=== PATIENT | female | born 1965 | race Caucasian/White ===

== ENCOUNTER 2023-04-27 03:10 | Emergency (ER) | payer OTHER, SELFPAY ==
[2023-04-27 03:12] VITALS: BP 135/93; PULSE 79; RESP 24; TEMP 36.6; O2SAT 97; BMI 17.3
[2023-04-27 03:22] VITALS: O2SAT 95
--- NOTE | 2023-04-27 03:25 | ECG_ITS ---
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
--- NOTE | 2023-04-27 03:31 | ED.ANXIETY1 ---
HPI - Anxiety General Chief Complaint: Anxiety Stated Complaint: ANXIETY Time Seen by Provider: 04/27/23 03:20 Source: patient Mode of arrival: ambulance Limitations: no limitations History of Present Illness HPI narrative: 57-year-old female presents for anxiety. It began tonight. She called 911 and the squad came out but initially she was transported because she didn't want to be. Later in the evening she called a 2nd time and they brought her in now. She is not suicidal. She's on anxiety medication. No fever or vomiting. Related Data Home Medications Medication Instructions Recorded Confirmed albuterol sulfate 2.5 mg/3 mL 2.5 mg inhalation PRN shortness of 04/27/23 (0.083 %) solution for nebulization breath or wheezing albuterol sulfate 90 mcg/actuation 2 puff inhalation Q4H 04/27/23 04/27/23 aerosol inhaler (Ventolin HFA) budesonide-formoterol HFA 80 1 inh inhalation PRN shortness of 04/27/23 mcg-4.5 mcg/actuation aerosol breath inhaler (Symbicort) mirtazapine 15 mg tablet 15 mg PO DAILY 04/27/23 04/27/23 sertraline 25 mg tablet 25 mg PO Q24H 04/27/23 04/27/23 Allergies Allergy/AdvReac Type Severity Reaction Status Date / Time No Known Drug Allergies Allergy Verified 04/27/23 03:20 Review of Systems ROS Narrative A ten point review of systems is negative except as noted above. PFSH PFSH Social History Smoking status: Former smoker Exam Narrative Exam Narrative: Nurses note and vital signs reviewed and patient is not hypoxic. General: The patient appears mildly anxious. Skin: Warm, dry, no pallor noted. There is no rash noted. Head: Normocephalic, atraumatic Eye: Normal conjunctiva, no drainage Ears, Nose, Mouth, and Throat: oral mucosa is moist. Nares patent. Cardiovascular: Regular Rate and Rhythm Respiratory: Patient has equal breath sounds. No rales or rhonchi noted. Back: non-tender GI: nontender Musculoskeletal: The patient has no evidence of calf tenderness, no pitting edema, symmetrical pulses noted bilaterally Neurological: A&O, normal speech Psychiatric: Cooperative Constitutional Vital Signs, click to edit/add: Last Vital Signs Temp 97.8 F 04/27/23 03:12 Pulse 79 04/27/23 03:12 Resp 24 04/27/23 03:12 BP 135/93 H 04/27/23 03:12 Pulse Ox 95 04/27/23 03:22 O2 Del Method Nasal Cannula 04/27/23 03:22 O2 Flow Rate 2 04/27/23 03:22 Course Vital Signs Vital signs: Vital Signs Temperature 97.8 F 04/27/23 03:12 Pulse Rate 79 04/27/23 03:12 Respiratory Rate 24 04/27/23 03:12 Blood Pressure 135/93 H 04/27/23 03:12 Pulse Oximetry 97 04/27/23 03:12 Oxygen Delivery Method Nasal Cannula 04/27/23 03:12 Oxygen Delivery Flow Rate 2 04/27/23 03:12 Temperature 97.8 F 04/27/23 03:12 Pulse Rate 79 04/27/23 03:12 Respiratory Rate 24 04/27/23 03:12 Blood Pressure 135/93 H 04/27/23 03:12 Pulse Oximetry 95 04/27/23 03:22 Oxygen Delivery Method Nasal Cannula 04/27/23 03:22 Oxygen Delivery Flow Rate 2 04/27/23 03:22 MDM - Anxiety MDM Narrative Medical decision making narrative: the patient presented with anxiety. She was given 0.5 mg IV Ativan and feels much better. She's been resting and sleeping and is able to be discharged home. Treatment diagnosis and follow-up were discussed with the patient. Differential Diagnosis Differential diagnosis: Likely panic disorder and acute anxiety ECG Data Attestation: I personally reviewed and interpreted this ECG as follows: (EKG on my interpretation shows sinus rhythm with a rate of 83 and a great deal of artifact.) Discharge Plan Discharge Chief Complaint: Anxiety Clinical Impression: Acute anxiety Patient Disposition: Home, Self-Care Time of Disposition Decision: 04:26 Condition: Good Mode of Transportation: Private Vehicle Prescriptions / Home Meds: No Action albuterol sulfate 2.5 mg /3 mL (0.083 %) solution for nebulization 2.5 mg inhalation PRN (Reason: shortness of breath or wheezing) albuterol sulfate [Ventolin HFA] 90 mcg/actuation HFA aerosol inhaler 2 puff INHALATION Q4H budesonide-formoterol [Symbicort] 80-4.5 mcg/actuation HFA aerosol inhaler 1 inh INHALATION PRN (Reason: shortness of breath) mirtazapine 15 mg tablet 15 mg PO DAILY sertraline 25 mg tablet 25 mg PO Q24H Instructions: Anxiety (ED) Stand Alone Forms: Portal Instructions Referrals: AUGUSTUS PRADHAN APRN [Physician] - 1 week
[2023-04-27] MEDS: LORAZEPAM 2 MG/ML 1 ML VIAL 0.5 MG IV (03:36)
--- NOTE | 2023-04-27 03:56 | PC.NURSE ---
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 she originally called 911 around 2100 but ultimately decided not be come to the hospital to be evaluated. states after EMS left the first time anxiety did not resolve. 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 denies thoughts of self harm. upon arrival patient is sitting up on stretcher, tense, holding onto ems personal . patient on 2 liter of o2 she has been since she was diagnosed with Long Covid 2 years ago. patient is tachypneic breathing 30 breaths per min. patient is currently being treated for anxiety and ptsd
== END 2023-04-27 05:20 | disposition home or self-care (01) ==
PROVIDERS: Emergency Provider Emergency Medicine
DX: F41.9 Anxiety disorder, unspecified (principal); Z79.899 Other long term (current) drug therapy; Z87.891 Personal history of nicotine dependence
CPT/HCPCS: 93005; 96374; 99284

== ENCOUNTER 2024-06-17 12:36 | Inpatient (IN) | payer OTHER, SELFPAY ==
[2024-06-17] VITALS (18 sets, daily range): BP systolic 104–122; BP diastolic 63–87; PULSE 74–94; TEMP 36.3–36.7; O2SAT 87–97; BMI 18.4; BMI 17.5
--- NOTE | 2024-06-17 13:04 | XR_ITS ---
The [address] [address] Patient Name: CHAZ HOSKINS MRN: [id number] date: 1965 Sex: F Assigned Patient Location: ER Current Patient Location: ED.MAIN Accession/Order Number: [id number] Exam Date: 06/17/2024 13:15 Report Date: 06/17/2024 13:45 At the request of: MICHELLE MORELOS Procedure: XR chest 1V EXAMINATION: XR chest 1V HISTORY: sob COMPARISON: XR chest 08/13/2022 FINDINGS: LUNGS: Trace amount of stranding within left upper lobe. VASCULATURE: No increased pulmonary vasculature. PLEURA: No pneumothorax, effusion, or pleural thickening. CARDIAC: No cardiomegaly or cardiac silhouette abnormality. MEDIASTINUM: No visible mass or adenopathy. BONES: No fracture or visible bone lesion. OTHER: Negative. XR/XR chest 1V IMPRESSION: 1. Trace amount of left upper lobe infiltrates versus atelectasis. Electronically authenticated by: LUIS WORRELL Date: 06/17/2024 13:45
--- NOTE | 2024-06-17 13:04 | ECG_ITS ---
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
[2024-06-17 13:23] LABS: Basophils Percent Auto 0.7 % (0.2-2.0); Eosinophils Absolute Auto 0.1 10^3/uL (0.0-0.7); Eosinophils Percent Auto 1.7 % (0.9-7.0); Hematocrit 43.9 % (36.0-48.0); Lymphocytes Absolute Auto 0.8 10^3/uL (1.2-3.8); Lymphocytes Percent Auto 27.1 % (20.5-60.0); Mean Corpuscular HGB Conc 31.9 g/dL (29.9-35.2); Mean Corpuscular Hemoglobin 29.5 pg (26.7-34.0); Mean Corpuscular Volume 92.4 fL (81.0-99.0); Mean Platelet Volume 9.2 fL (9.5-13.5); Monocytes Absolute Auto 0.2 10^3/uL (0.3-0.8); Monocytes Percent Auto 7.6 % (1.7-12.0); Neutrophils Absolute Auto 1.8 10^3/uL (1.4-6.5); Neutrophils Percent Auto 62.9 % (43.0-75.0); Platelet Count 189 10^3/uL (150-450); Red Blood Count 4.75 10^6/uL (4.20-5.40); Red Cell Distribution Width 12.2 % (11.0-15.0); White Blood Count 2.9 10^3/uL (4.0-11.0)
[2024-06-17 13:39] LABS: Alanine Aminotransferase 16 U/L (14-59); Albumin Globulin Ratio 0.8; Alkaline Phosphatase 101 U/L (46-116); Anion Gap 10.6; Aspartate Amino Transferase 12 U/L (15-37); BUN Creatinine Ratio 12.9; Bilirubin Total 0.4 mg/dL (0.2-1.0); Calcium 8.9 mg/dL (8.5-10.1); Chloride 101 mmol/L (98-107); Estimated GFR (African America >60 (>=60 mL/min/1.73m^2); Estimated GFR (Non-African Ame >60 (>=60 mL/min/1.73m^2); Globulin 3.9 g/dL; Glucose 83 mg/dL (74-106); Potassium 4.6 mmol/L (3.5-5.1); Sodium 141 mmol/L (136-145); Total Protein 6.9 g/dL (6.4-8.2); Troponin I High Sensitivity 4.7 pg/mL (4.0-51.3)
[2024-06-17 13:40] LABS: INR 1.02; Prothrombin Time 10.8 sec (9.0-11.6)
--- NOTE | 2024-06-17 14:02 | ED_ITS ---
HPI HPI - General Adult General Chief complaint: Anxiety Stated complaint: GENERAL WEAKNESS Time Seen by Provider: 06/17/24 12:57 Source: patient Mode of arrival: ambulance Limitations: no limitations History of Present Illness HPI narrative: The patient is coming to us initially for concern that her anxiety is not getting controlled easily she have a history of lung cancer status posttreatment last year she has been on remission since last year, she did receive some radiation as well as chemo the patient apparently has been for the last 2 to 3 days feeling short of breath more than usual and she is referring to that to be possibly due to her anxiety. The patient denies having any reason to be anxious although she did mention that she hear wheezing sometimes when she is breathing and she is coughing more phlegm than usual for the last few days The patient denies any fever or chills she also have a history of PTSD after 04/06 Patient pulse ox was in the 80s when she was here and she mentioned that she is always saturating like that at home she measured her pulse ox and she also mentioned that she usually use 2 L of oxygen right now she is between 3 and 4 Related Data Home Medications ?Medication ?Instructions ?Recorded ?Confirmed albuterol sulfate 2.5 mg/3 mL 2.5 mg inhalation Q6H PRN 04/27/23 06/17/24 (0.083 %) solution for nebulization shortness of breath or wheezing albuterol sulfate 90 mcg/actuation 2 puff inhalation Q4H 04/27/23 06/17/24 aerosol inhaler (Ventolin HFA) budesonide-formoterol HFA 80 1 inh inhalation PRN shortness of 04/27/23 mcg-4.5 mcg/actuation aerosol breath inhaler (Symbicort) mirtazapine 15 mg tablet 15 mg PO DAILY 04/27/23 06/17/24 buspirone 5 mg tablet 5 mg PO BID 06/17/24 06/17/24 hydroxyzine HCl 25 mg tablet mg 06/17/24 ipratropium 0.5 mg-albuterol 3 mg ml inhalation 06/17/24 (2.5 mg base)/3 mL nebulization soln Allergies Allergy/AdvReac Type Severity Reaction Status Date / Time No Known Drug Allergies Allergy Verified 06/17/24 13:59 Opioid HPI Opioid Management Most Recent Opioid Data: No Data to Display Review of Systems ROS Status of ROS 10 or more systems reviewed and unremark able except as noted in history and below PFSH PFSH Social History Smoking status: Former smoker Little interest or pleasure in doing things: nearly every day Feeling down, depressed, or hopeless: nearly every day Exam Narrative Exam Narrative: Nurses notes and vital signs reviewed and patient is not hypoxic. General: Well-appearing and in no apparent distress. Skin: Warm, dry, no pallor noted. No rash. Head: Normocephalic, atraumatic. Neck: Supple, non-tender. Eye: Pupils are equal, round and EOMI. No scleral icterus. Ears, Nose, Mouth, and Throat: TM are clear, no nasal mucosal hypertrophy. Oral mucosa is moist, no posterior oropharynx erythema, uvula is mid-line Cardiovascular: Regular Rate and Rhythm without murmur, gallop or rub. Respiratory: The patient is not using accessory muscles but she is having wheezing on the right side distant breathing sounds and the left side the patient also have distant breathing sound as well Lungs are clear to auscultation, no wheezing, rales or rhonchi Chest Wall: no tenderness Back: No midline thoracic or lumbar vertebral tenderness. No CVA tenderness Musculoskeletal: normal ROM, no calf or popliteal tenderness, no lower extremity edema/swelling, very long fingernails would make it hard to measure her pulse ox GI: Abdomen is soft, non-distended. Normal bowel sounds. No masses appreciated. No tenderness to palpation. No rebound, guarding, or rigidity noted. Neurological: A&O x4. No cranial nerve dysfunction observed. No truncal ataxia. Moves all extremities. Sensation intact. Psychiatric: Cooperative and interactive. Normal mood and affect. Constitutional Vital Signs, click to edit/add: Last Vital Signs Temp 98.1 F 06/17/24 12:46 Pulse 82 06/17/24 14:50 Resp 18 06/17/24 14:15 BP 105/72 06/17/24 14:45 Pulse Ox 87 L 06/17/24 14:50 O2 Del Method Nasal Cannula 06/17/24 14:21 O2 Flow Rate 3 06/17/24 14:21 Course Vital Signs Vital signs: Vital Signs Temperature 98.1 F 06/17/24 12:46 Pulse Rate 88 06/17/24 12:46 Respiratory Rate 22 H 06/17/24 12:46 Blood Pressure 104/87 06/17/24 12:46 Pulse Oximetry 88 L 06/17/24 12:46 Oxygen Delivery Method Room Air 06/17/24 12:46 Temperature 98.1 F 06/17/24 12:46 Pulse Rate 82 06/17/24 14:50 Respiratory Rate 18 06/17/24 14:15 Blood Pressure 105/72 06/17/24 14:45 Pulse Oximetry 87 L 06/17/24 14:50 Oxygen Delivery Method Nasal Cannula 06/17/24 14:21 Oxygen Delivery Flow Rate 3 06/17/24 14:21 Medical Decision Making MDM Narrative Medical decision making narrative: Upon arrival the patient was found to be short of breath mostly secondary to COPD exacerbation then her anxiety Especially with the patient having more phlegm production for the last few days the patient white blood cell with 2.9 which could be secondary to leukopenia secondary to viral infection COVID and flu negative test in the ER EKG in the ER showing sinus rhythm with a heart rate of [address] elevation or depression The patient was on 3 L here in the ER saturating 87% and she is not tachypneic or using any accessory muscle at the moment Chest x-ray shows possible infiltrate on the left side which could be reason for the patient shortness of breath for possible pneumonia Chemistry is rather negative as well as troponin The patient was feeling mildly better after the steroids and she will be admitted for further evaluation and treatment specially with her history of i ncreasing her oxygen requirement Patient was started azithromycin and ceftriaxone The patient also had her case discussed with Dr Moser and she agreed with above- mentioned plan Lab Data Labs: Lab Results 06/17/24 06/17/24 Range/Units 13:16 14:30 WBC 2.9 L (4.0-11.0) 10^3/uL RBC 4.75 (4.20-5.40) 10^6/uL Hgb 14.0 (12.0-16.0) g/dL Hct 43.9 (36.0-48.0) % MCV 92.4 (81.0-99.0) fL MCH 29.5 (26.7-34.0) pg MCHC 31.9 (29.9-35.2) g/dL RDW 12.2 (11.0-15.0) % Plt Count 189 (150-450) 10^3/uL MPV 9.2 L (9.5-13.5) fL Neut % (Auto) 62.9 (43.0-75.0) % Lymph % (Auto) 27.1 (20.5-60.0) % [place] % (Auto) 7.6 (1.7-12.0) % Eos % (Auto) 1.7 (0.9-7.0) % Baso % (Auto) 0.7 (0.2-2.0) % Neut # (Auto) 1.8 (1.4-6.5) 10^3/uL Lymph # (Auto) 0.8 L (1.2-3.8) 10^3/uL [place] # (Auto) 0.2 L (0.3-0.8) 10^3/uL Eos # (Auto) 0.1 (0.0-0.7) 10^3/uL Baso # (Auto) 0.0 (0.0-0.1) 10^3/uL Abs Immat Gran (auto) 0.00 (0.00-0.03) 10^3/uL Imm/Tot Granulo (auto) 0.0 (0.0-0.5) % PT 10.8 (9.0-11.6) sec INR 1.02 Sodium 141 (136-145) mmol/L Potassium 4.6 (3.5-5.1) mmol/L Chloride 101 (98-107) mmol/L Carbon Dioxide 34.0 H (21.0-32.0) mmol/L Anion Gap 10.6 BUN 8.0 (7.0-18.0) mg/dL Creatinine 0.62 (0.55-1.02) mg/dL Est GFR ( Amer) >60 (>=60 mL/min/1.73m^2) Est GFR (Non-Af Amer) >60 (>=60 mL/min/1.73m^2) BUN/Creatinine Ratio 12.9 Glucose 83 (74-106) mg/dL Calcium 8.9 (8.5-10.1) mg/dL Total Bilirubin 0.4 (0.2-1.0) mg/dL AST 12 L (15-37) U/L ALT 16 (14-59) U/L Alkaline Phosphatase 101 (46-116) U/L Troponin I High Sens 4.7 (4.0-51.3) pg/mL Total Protein 6.9 (6.4-8.2) g/dL Albumin 3.0 L (3.4-5.0) g/dL Globulin 3.9 g/dL Albumin/Globulin Ratio 0.8 Influenza Type A Ag Negative Influenza Type B Ag Negative SARS-CoV-2 Ag (CV2AG) Negative (NEGATIVE) Discharge Plan Discharge Chief Complaint: Anxiety Clinical Impression: Asthma exacerbation in COPD, Increased oxygen demand, Pneumonia Patient Disposition: Admitted As Inpatient Time of Disposition Decision: 15:28
[2024-06-17] MEDS: METHYLPREDNISOLONE SOD SUCC PF 125 MG/2 ML VIAL IVP (14:14)
[2024-06-17] MEDS: IPRATROPIUM/ALBUTEROL SULFATE 3 ML AMPUL.NEB IH ×3 (14:20→22:24)
[2024-06-17 15:10] LABS: Influenza Virus A Antigen Negative; Influenza Virus B Antigen Negative; Internal Control Within Normal Limits; SARS-CoV-2 Ag NEGATIVE (NEGATIVE)
[2024-06-17] MEDS: CEFTRIAXONE 1,000 MG in 0.9 % SODIUM CHLORIDE 50 ML 100 MG IV (15:17)
[2024-06-17] MEDS: AZITHROMYCIN 500 MG in 0.9 % SODIUM CHLORIDE 250 ML 250 MG IV (15:58)
--- NOTE | 2024-06-17 16:01 | P.HP_ITS ---
HPI H&P: HPI History of Present Illness Chief complaint: GENERAL WEAKNESS PHNEMONIA COPD EXACERBATION Narrative: Patient is a 58 y.o white female with past medical history of lung cancer (post chemo/radiation/remission since 2022), COPD, ex-smoker, PTSD, Anxiety, who presented to the ER with 2-3 days of weakness, increased cough with sputum production, shortness of breath. She thought her anxiety was getting worse but was not sure. She uses 2L [place] oxygen at night time only. She has very long finger nails so a pulse ox reading is difficult. She was found to be 87% on room air and on 2L, so she was increased to 3L. Chest X-ray shows YIN infiltrate. WBC's 2.9, Trop negative. D-dimer is pending. She was given duoneb, started on Azithromycin and rocephin IV. She will be admitted to the hospitalist service for acute COPD exacerbation, YIN PNA, and Acute on chronic resp failure. Inf luenza and Covid testing were negative. When doing her admission exam, she had a panic attack in the elevator on her way up. She was very short of breath when i entered room. I was able to talk her through it, She received 0.5mg Ativan IV x 1. Opioid HPI Opioid Management Most Recent Pain and Opioid Data: No Data to Display Review of Systems ROS Narrative ROS: a complete review of systems were reviewed with patient and are positive as below or listed in History of Chief Complaint. General: no fever, chills, night sweats Head: no headache, trauma, visual changes, nausea or vomiting Skin: no reported rashes, itching or sores Eyes: no blurriness of vision Ears: no reported hearing loss, vertigo, earache, or tinnitus Throat: no sore throat, hoarseness, swelling of neck, or tongue pain Heart: no chest pain Lungs:shortness of breath and cough GI: no diarrhea or vomiting/nausea Urinary: no urinary urgency, frequency or pain Neuro: no numbness or tingling HEM: no bleeding issues or bruising ENDO: no thyroid problems Psych: anxiety and depression [facility] Medical History (Updated 06/17/24 @ 16:08 by Robyn Moser DO) Former smoker ?Z87.891 - Personal history of nicotine dependence (ICD-10) COPD (chronic obstructive pulmonary disease) ?J44.9 - Chronic obstructive pulmonary disease, unspecified (ICD-10) Anxiety ?F41.9 - Anxiety disorder, unspecified (ICD-10) Lung cancer ?C34.90 - Malignant neoplasm of unspecified part of unspecified bronchus or lung (ICD-10) Social History Smoking status: Former smoker Little interest or pleasure in doing things: nearly every day Feeling down, depressed, or hopeless: nearly every day Meds Home Medications and Allergies Home Medications ?Medication ?Instructions ?Recorded ?Confirmed ?Type albuterol sulfate 2.5 mg/3 mL 2.5 mg inhalation Q6H PRN 04/27/23 06/17/24 History (0.083 %) solution for nebulization shortness of breath or wheezing albuterol sulfate 90 mcg/actuation 2 puff inhalation Q4H 04/27/23 06/17/24 History aerosol inhaler (Ventolin HFA) budesonide-formoterol HFA 80 1 inh inhalation Q12H 04/27/23 06/17/24 History mcg-4.5 mcg/actuation aerosol inhaler (Symbicort) mirtazapine 15 mg tablet 15 mg PO DAILY 04/27/23 06/17/24 History buspirone 5 mg tablet 5 mg PO BID 06/17/24 06/17/24 History hydroxyzine HCl 25 mg tablet 25 mg PO Q6H PRN itching 06/17/24 06/17/24 History ipratropium 0.5 mg-albuterol 3 mg 3 ml inhalation Q6H 06/17/24 06/17/24 History (2.5 mg base)/3 mL nebulization soln Allergies Allergy/AdvReac Type Severity Reaction Status Date / Time No Known Drug Allergies Allergy Verified 06/17/24 13:59 Exam Narrative Exam Narrative: General: Patient is alert, and oriented to person, place and time with normal affect, proper hygiene Skin: no visible rashes, or ulcers Head: atraumatic, acephalic Eyes: PERRLA, no nystagmus present, conjunctiva clear, no scleral icterus Ears: normal gross auditory acuity Heart: Normal rate and rhythm, no murmurs/rubs/gallops Lungs: audible wheezes, crackles and dimininshed breath sounds all lung reid Abdomen: Normal audible bowel sounds, no distension, No palpable masses, no organomegaly, no rebound/guarding/ or rigidity Musculoskeletal: muscle atrophy noted, ROM is limited due to being in hospital bed, no swelling bilateral lower extremities Neuro: CN II-X grossly intact Constitutional Vital Signs, click to edit/add: Last Vital Signs Temp 98.1 F 06/17/24 12:46 Pulse 82 06/17/24 14:50 Resp 18 06/17/24 14:15 BP 105/72 06/17/24 14:45 Pulse Ox 87 L 06/17/24 14:50 O2 Del Method Nasal Cannula 06/17/24 14:21 O2 Flow Rate 3 06/17/24 14:21 Results Labs Labs: Short CBC 06/17/24 Range/Units 13:16 WBC 2.9 L (4.0-11.0) 10^3/uL Hgb 14.0 (12.0-16.0) g/dL Hct 43.9 (36.0-48.0) % Plt Count 189 (150-450) 10^3/uL BMP 06/17/24 13:16 Sodium 141 Potassium 4.6 Chloride 101 Carbon Dioxide 34.0 H BUN 8.0 Creatinine 0.62 Glucose 83 Calcium 8.9 Liver Function 06/17/24 Range/Units 13:16 Total Bilirubin 0.4 (0.2-1.0) mg/dL AST 12 L (15-37) U/L ALT 16 (14-59) U/L Alkaline Phosphatase 101 (46-116) U/L Albumin 3.0 L (3.4-5.0) g/dL Assessment and Plan Assessment and Plan (1) Acute exacerbation of chronic obstructive pulmonary disease: Assessment and Plan: will treat with rocephin, zithromax and IV solumedrol. Opep, scheduled duonebs and pulmicort with as needed albuterol. Mucinex as needed for cough. (2) Pneumonia: Assessment and Plan: as seen on X-ray in YIN, Viral testing negative Qualifiers: Laterality: left Lung location: upper lobe of lung Pneumonia type: due to unspecified organism Qualified Code(s): J18.9 - Pneumonia, unspecified organism (3) Acute and chronic respiratory failure with hypoxia: Assessment and Plan: D-dimer normal, trop normal. (4) Anxiety: Assessment and Plan: increase buspar to 10mg BID, continue remeron at night, may benefit from daily prozac. (5) Lung cancer: Assessment and Plan: in remission, unknown location Qualifiers: Laterality: unspecified laterality Lung location: unspecified part of lung Qualified Code(s): C34.90 - Malignant neoplasm of unspecified part of unspecified bronchus or lung (6) Former smoker: Plan Patient is a full code on lovenox for DVT prophylaxis Patient is inpatient status and is expected to stay 2-3 days with acute symptoms and history of lung cancer.
[2024-06-17 16:35] LABS: D Dimer 0.24 mg/L FEU (<=0.59)
[2024-06-17] MEDS: ONDANSETRON PF 4 MG/2 ML VIAL IV (16:38)
[2024-06-17] MEDS: LORAZEPAM 2 MG/ML VIAL 0.5 MG IV (17:15)
--- NOTE | 2024-06-17 19:09 | DIETREC ---
Visited w/pt in room, provided diet education including handouts: Planning healthy meals and reducing Sodium. Also provided Ensure coupons. Pt is interested in regaining lost weight. Recommend 237 mL Ensure BID - pt prefers vanilla. Will continue to follow PRN.
[2024-06-17] MEDS: BUSPIRONE HCL 10 MG TABLET PO (21:18)
[2024-06-17] MEDS: ENOXAPARIN SODIUM 40 MG/0.4 ML SYRINGE SUBQ (21:18)
[2024-06-17] MEDS: METHYLPREDNISOLONE SOD SUCC PF 40 MG/ML VIAL IVP (21:18)
[2024-06-17] MEDS: MIRTAZAPINE 15 MG TABLET PO (21:18)
[2024-06-17] MEDS: ENSURE ORIGINAL 237 ML BOTTLE PO (21:19)
[2024-06-17] MEDS: BUDESONIDE 0.5 MG/2 ML AMPULE NEB IH (22:24)
[2024-06-18] VITALS (22 sets, daily range): BP systolic 106–123; BP diastolic 52–81; PULSE 68–106; TEMP 36.3–36.9; O2SAT 83–96
[2024-06-18] MEDS: IPRATROPIUM/ALBUTEROL SULFATE 3 ML AMPUL.NEB IH ×4 (05:20→22:26)
[2024-06-18 06:04] LABS: Hemoglobin 13.2 g/dL (12.0-16.0); Immature Granulocytes Abs Auto 0.01 10^3/uL (0.00-0.03); Immature Granulocytes Pct Auto 0.4 % (0.0-0.5); Lymphocytes Absolute Auto 0.6 10^3/uL (1.2-3.8); Mean Corpuscular HGB Conc 31.4 g/dL (29.9-35.2); Mean Corpuscular Hemoglobin 28.8 pg (26.7-34.0); Mean Corpuscular Volume 91.7 fL (81.0-99.0); Mean Platelet Volume 9.5 fL (9.5-13.5); Monocytes Absolute Auto 0.1 10^3/uL (0.3-0.8); Neutrophils Absolute Auto 1.7 10^3/uL (1.4-6.5); Neutrophils Percent Auto 72.6 % (43.0-75.0); Platelet Count 222 10^3/uL (150-450); Red Blood Count 4.58 10^6/uL (4.20-5.40); Red Cell Distribution Width 11.9 % (11.0-15.0); White Blood Count 2.3 10^3/uL (4.0-11.0)
[2024-06-18] MEDS: METHYLPREDNISOLONE SOD SUCC PF 40 MG/ML VIAL IVP ×3 (06:12→21:11)
[2024-06-18 06:25] LABS: Alanine Aminotransferase 16 U/L (14-59); Albumin Globulin Ratio 0.7; Albumin Level 2.7 g/dL (3.4-5.0); Alkaline Phosphatase 88 U/L (46-116); Anion Gap 12.6; Aspartate Amino Transferase 11 U/L (15-37); BUN Creatinine Ratio 27.4; Bilirubin Total 0.3 mg/dL (0.2-1.0); Calcium 9.3 mg/dL (8.5-10.1); Carbon Dioxide 31.1 mmol/L (21.0-32.0); Chloride 103 mmol/L (98-107); Estimated GFR (African America >60 (>=60 mL/min/1.73m^2); Estimated GFR (Non-African Ame >60 (>=60 mL/min/1.73m^2); Glucose 122 mg/dL (74-106); Potassium 4.7 mmol/L (3.5-5.1); Sodium 142 mmol/L (136-145); Total Protein 6.7 g/dL (6.4-8.2)
[2024-06-18] MEDS: ENSURE ORIGINAL 237 ML BOTTLE PO ×2 (08:37→21:10)
[2024-06-18] MEDS: CHOLECALCIFEROL (VITAMIN D3) 25 MCG/1,000 UNITS TABLET PO (09:38)
[2024-06-18] MEDS: GUAIFENESIN 600 MG TAB.ER.12H PO ×2 (09:38→21:16)
[2024-06-18] MEDS: BUSPIRONE HCL 10 MG TABLET 5 MG PO ×2 (09:38→21:12)
[2024-06-18] MEDS: FLUOXETINE HCL 10 MG CAPSULE PO (09:38)
[2024-06-18] MEDS: MULTIVITAMIN TABLET 1 TAB PO (09:38)
[2024-06-18] MEDS: LORAZEPAM 1 MG TABLET PO (09:56)
[2024-06-18] MEDS: BUDESONIDE 0.5 MG/2 ML AMPULE NEB IH ×2 (10:46→22:25)
--- NOTE | 2024-06-18 10:50 | P.IMPN_ITS ---
Progress Note: A&P Assessment and Plan (1) Acute exacerbation of chronic obstructive pulmonary disease: Assessment and Plan: COPD exacerbation likely sec to PNA. Still wheezing, dyspneic and hypoxic. C/w solumedrol, duonebs. (2) Pneumonia: Assessment and Plan: C/w IV rocephin/azithromycin. C/w solumedrol/duonebs. Qualifiers: Laterality: left Lung location: upper lobe of lung Pneumonia type: due to unspecified organism Qualified Code(s): J18.9 - Pneumonia, unspecified organism (3) Acute and chronic respiratory failure with hypoxia: Assessment and Plan: On 4 L O2. Baseline O2 requirement -2 L at night. Still SOB at rest. Wean off O2 as tolerated. (4) Anxiety: Assessment and Plan: Poorly controlled, worsened with Duonebs. C.w home medications. On hydroxyzine and ativan as needed (5) Lung cancer: Assessment and Plan: In remission since 2022 - had radiation. Qualifiers: Laterality: unspecified laterality Lung location: unspecified part of lung Qualified Code(s): C34.90 - Malignant neoplasm of unspecified part of unspecified bronchus or lung (6) Severe protein-calorie malnutrition: Assessment and Plan: Pt only weights 35 Kg with BMI of only 17. Evidence of muscle wasting, loss of subcutaneous fat. Has poor nutritional status likely due to chronic disease burden - COPD, Lung cancer. Added ensure to diet. Evaluated by nutrition. Internal Medicine - PN: Subj Subjective Interval history: Seen and examined, no acute events overnight. On 4 L O2 via NC. Still SOB at rest and on exertion. Feels slightly better compared to yesterday. Exam Constitutional Vital Signs, click to edit/add: Last Vital Signs Temp 97.4 F L 06/18/24 07:30 Pulse 86 06/18/24 10:00 Resp 18 06/18/24 07:30 BP 122/77 06/18/24 07:30 Pulse Ox 90 L 06/18/24 08:14 O2 Del Method Nasal Cannula 06/18/24 08:14 O2 Flow Rate 4 06/18/24 08:14 Documenting provider has reviewed patient's vital signs: yes Common normals: oriented x3 General appearance: cooperative, ill appearing and frail appearing Nutritional appearance: cachectic and underweight HENID Common normals: normocephalic and head/scalp atraumatic Head and scalp: normocephalic and atraumatic Eye Common normals: conjunctivae normal and no scleral icterus Conjunctiva: conjunctiva(e) normal Respiratory Common normals: normal respiratory effort Auscultation: diminished lung sounds Other: Conversational dyspnea noted. Expiratory wheezing. No rales/rhonchi. Cardio Common normals: regular rate, S1 normal heart sound and S2 normal heart sound Rate: regular rate Heart sounds: S1 normal and S2 normal Extremity Common normals: no clubbing, cyanosis or edema Neuro Common normals: oriented x3, moves all extremities and no focal motor deficits Psych Common normals: mental status grossly normal, thought process normal, denies hallucinations, denies homicidal ideation and denies suicidal ideation Internal Medicine - PN: Obj Da Labs Labs: Laboratory Results - last 24 hr 06/17/24 06/17/24 06/18/24 13:16 14:30 05:41 WBC 2.9 L 2.3 L RBC 4.75 4.58 Hgb 14.0 13.2 Hct 43.9 42.0 MCV 92.4 91.7 MCH 29.5 28.8 MCHC 31.9 31.4 RDW 12.2 11.9 Plt Count 189 222 MPV 9.2 L 9.5 Neut % (Auto) 62.9 72.6 Lymph % (Auto) 27.1 24.0 [place] % (Auto) 7.6 3.0 Eos % (Auto) 1.7 0.0 L Baso % (Auto) 0.7 0.0 L Neut # (Auto) 1.8 1.7 Lymph # (Auto) 0.8 L 0.6 L [place] # (Auto) 0.2 L 0.1 L Eos # (Auto) 0.1 0.0 Baso # (Auto) 0.0 0.0 Abs Immat Gran (auto) 0.00 0.01 Imm/Tot Granulo (auto) 0.0 0.4 PT 10.8 INR 1.02 D-Dimer 0.24 Sodium 141 142 Potassium 4.6 4.7 Chloride 101 103 Carbon Dioxide 34.0 H 31.1 Anion Gap 10.6 12.6 BUN 8.0 17.0 Creatinine 0.62 0.62 Est GFR ( Amer) >60 >60 Est GFR (Non-Af Amer) >60 >60 BUN/Creatinine Ratio 12.9 27.4 Glucose 83 122 H Calcium 8.9 9.3 Magnesium 2.0 Total Bilirubin 0.4 0.3 AST 12 L 11 L ALT 16 16 Alkaline Phosphatase 101 88 Troponin I High Sens 4.7 Total Protein 6.9 6.7 Albumin 3.0 L 2.7 L Globulin 3.9 4.0 Albumin/Globulin Ratio 0.8 0.7 Influenza Type A Ag Negative Influenza Type B Ag Negative SARS-CoV-2 Ag (CV2AG) Negative
[2024-06-18] MEDS: FLU VAC QS 2024(6MS UP)CEL/PF 60 MCG/0.5 ML SYRINGE IM (10:57)
[2024-06-18] MEDS: AZITHROMYCIN 500 MG in 0.9 % SODIUM CHLORIDE 250 ML 250 MG IV (12:04)
[2024-06-18] MEDS: 0.9 % SODIUM CHLORIDE 250 ML 10 ML IV (12:04)
[2024-06-18] MEDS: CEFTRIAXONE 1,000 MG in 0.9 % SODIUM CHLORIDE 50 ML 100 MG IV (13:22)
[2024-06-18] MEDS: MIRTAZAPINE 15 MG TABLET 30 MG PO (21:11)
[2024-06-18] MEDS: ENOXAPARIN SODIUM 40 MG/0.4 ML SYRINGE SUBQ (21:11)
[2024-06-18] MEDS: TEMAZEPAM 15 MG CAPSULE PO (22:08)
[2024-06-19 00:25] VITALS: BP 116/72; PULSE 88; TEMP 36.3; O2SAT 90
[2024-06-19 01:25] VITALS: PULSE 79
[2024-06-19 04:00] VITALS: BP 110/69; PULSE 74; PULSE 81; TEMP 36.7; O2SAT 95
[2024-06-19] MEDS: IPRATROPIUM/ALBUTEROL SULFATE 3 ML AMPUL.NEB IH ×2 (04:56→10:54)
[2024-06-19 04:58] VITALS: PULSE 18; O2SAT 96
[2024-06-19] MEDS: METHYLPREDNISOLONE SOD SUCC PF 40 MG/ML VIAL IVP (05:06)
[2024-06-19 05:53] LABS: Basophils Percent Auto 0.1 % (0.2-2.0); Hematocrit 40.3 % (36.0-48.0); Hemoglobin 12.8 g/dL (12.0-16.0); Immature Granulocytes Abs Auto 0.02 10^3/uL (0.00-0.03); Immature Granulocytes Pct Auto 0.3 % (0.0-0.5); Lymphocytes Absolute Auto 0.7 10^3/uL (1.2-3.8); Lymphocytes Percent Auto 9.2 % (20.5-60.0); Mean Corpuscular HGB Conc 31.8 g/dL (29.9-35.2); Mean Corpuscular Volume 91.2 fL (81.0-99.0); Mean Platelet Volume 9.5 fL (9.5-13.5); Monocytes Absolute Auto 0.2 10^3/uL (0.3-0.8); Monocytes Percent Auto 1.9 % (1.7-12.0); Neutrophils Percent Auto 88.5 % (43.0-75.0); Platelet Count 235 10^3/uL (150-450); Red Blood Count 4.42 10^6/uL (4.20-5.40); Red Cell Distribution Width 12.1 % (11.0-15.0); White Blood Count 7.9 10^3/uL (4.0-11.0)
[2024-06-19 06:12] LABS: Alanine Aminotransferase 16 U/L (14-59); Albumin Globulin Ratio 0.8; Albumin Level 2.7 g/dL (3.4-5.0); Alkaline Phosphatase 81 U/L (46-116); Anion Gap 7.8; Aspartate Amino Transferase 10 U/L (15-37); BUN Creatinine Ratio 23.8; Bilirubin Total 0.2 mg/dL (0.2-1.0); Calcium 9.1 mg/dL (8.5-10.1); Carbon Dioxide 32.7 mmol/L (21.0-32.0); Chloride 104 mmol/L (98-107); Estimated GFR (African America >60 (>=60 mL/min/1.73m^2); Estimated GFR (Non-African Ame >60 (>=60 mL/min/1.73m^2); Globulin 3.6 g/dL; Glucose 116 mg/dL (74-106); Magnesium 1.9 mg/dL (1.8-2.4); Potassium 4.5 mmol/L (3.5-5.1); Sodium 140 mmol/L (136-145); Total Protein 6.3 g/dL (6.4-8.2)
[2024-06-19 07:59] VITALS: PULSE 76
[2024-06-19] MEDS: MULTIVITAMIN TABLET 1 TAB PO (08:15)
[2024-06-19] MEDS: BUSPIRONE HCL 10 MG TABLET 5 MG PO (08:15)
[2024-06-19] MEDS: CHOLECALCIFEROL (VITAMIN D3) 25 MCG/1,000 UNITS TABLET PO (08:15)
[2024-06-19] MEDS: GUAIFENESIN 600 MG TAB.ER.12H PO (08:15)
[2024-06-19] MEDS: FLUOXETINE HCL 10 MG CAPSULE PO (08:15)
[2024-06-19] MEDS: ENSURE ORIGINAL 237 ML BOTTLE PO (08:15)
--- NOTE | 2024-06-19 09:42 | PM.DS1 ---
DS: Providers Provider Date of admission: 06/17/24 16:49 Primary care physician: Non-Staff PhysicianMD Admitting clinician: Robyn Moser Attending physician on admission: Robyn Moser Consults: 06/17/24 Consult to Dietitian Routine Reason for consultation: weight loss Attending physician on discharge: Shaikh Aldo Discharging clinician: Shaikh Aldo Anticipated date of discharge: 06/19/24 DS: Diagnosis Discharge Diagnosis (1) Acute exacerbation of chronic obstructive pulmonary disease: (2) Pneumonia: Qualifiers: Laterality: left Lung location: upper lobe of lung Pneumonia type: due to unspecified organism Qualified Code(s): J18.9 - Pneumonia, unspecified organism (3) Acute and chronic respiratory failure with hypoxia: (4) Anxiety: (5) Lung cancer: Qualifiers: Laterality: unspecified laterality Lung location: unspecified part of lung Qualified Code(s): C34.90 - Malignant neoplasm of unspecified part of unspecified bronchus or lung (6) Severe protein-calorie malnutrition: DS: Summary Hospital Course Hospital Course: 58 y.o white female with past medical history of lung cancer (s/p radiation and in remission since 2022), COPD, ex-smoker, PTSD, Anxiety presented to the ER with 2-3 days of weakness, increased cough with sputum production and shortness of breath. Patient uses 2 L O2 at night and was found to have YIN PNA, COPD exacerbation and acute on chronic resp failure with hypoxia. She was treated with IV solumedrol, duonebs, IV rocephin/azithromycin during the course of admission. At one point during hospital course, she required 4 L O2 via NC. She clinically improved during the course of admission and is now more or less back to her baseline. She feels a little weaker than usual but otherwise denies cough, SOB at rest and on exertion. She is medically stable for discharge. Patient will be discharged home on oral cefdinier and prednisone taper to finish treatment course for Pneumonia, COPD exacerbation. Time Spent with Patient Time attestation: Total time spent providing and/or coordinating discharge services: Time spent: greater than 30 minutes Exam Constitutional Vital Signs, click to edit/add: Last Vital Signs Temp 98.0 F 06/19/24 04:00 Pulse 76 06/19/24 07:59 Resp 75 H 06/19/24 04:58 BP 110/69 06/19/24 04:00 Pulse Ox 96 06/19/24 04:58 O2 Del Method Nasal Cannula 06/19/24 04:58 O2 Flow Rate 2 06/19/24 04:58 Documenting provider has reviewed patient's vital signs: yes Common normals: oriented x3 General appearance: cooperative, ill appearing and frail appearing Nutritional appearance: cachectic and underweight Respiratory Common normals: normal respiratory effort, no use of accessory muscles and clear to auscultation bilaterally Effort & inspection: able to speak in complete sentences Cardio Common normals: regular rate, S1 normal heart sound and S2 normal heart sound Rate: regular rate Heart sounds: S1 normal and S2 normal Extremity Common normals: no clubbing, cyanosis or edema Neuro Common normals: oriented x3, moves all extremities and no focal motor deficits Psych Common normals: mental status grossly normal, thought process normal, denies hallucinations, denies homicidal ideation and denies suicidal ideation DS: Data Data Completed and Pending Labs on day of discharge: Labs from last 24 hours 06/19/24 05:41 WBC 7.9 RBC 4.42 Hgb 12.8 Hct 40.3 MCV 91.2 MCH 29.0 MCHC 31.8 RDW 12.1 Plt Count 235 MPV 9.5 Neut % (Auto) 88.5 H Lymph % (Auto) 9.2 L [place] % (Auto) 1.9 Eos % (Auto) 0.0 L Baso % (Auto) 0.1 L Neut # (Auto) 7.0 H Lymph # (Auto) 0.7 L [place] # (Auto) 0.2 L Eos # (Auto) 0.0 Baso # (Auto) 0.0 Abs Immat Gran (auto) 0.02 Imm/Tot Granulo (auto) 0.3 Sodium 140 Potassium 4.5 Chloride 104 Carbon Dioxide 32.7 H Anion Gap 7.8 BUN 15.0 Creatinine 0.63 Est GFR ( Amer) >60 Est GFR (Non-Af Amer) >60 BUN/Creatinine Ratio 23.8 Glucose 116 H Calcium 9.1 Magnesium 1.9 Total Bilirubin 0.2 AST 10 L ALT 16 Alkaline Phosphatase 81 Total Protein 6.3 L Albumin 2.7 L Globulin 3.6 Albumin/Globulin Ratio 0.8 Discharge Plan Discharge Disposition: Home, Self-Care Discharge Medications: New cefdinir 300 mg capsule 300 mg PO BID 5 Days Qty: 10 0RF prednisone 20 mg tablet 20 mg PO DAILY Qty: 20 0RF Rx Instructions: 3 tab x 3 days. 2 tab x 3 days. 1 tab x 3 days. 1/2 tab x 4 days Continued ipratropium-albuterol 0.5 mg-3 mg(2.5 mg base)/3 mL solution for nebulization 3 ml INHALATION Q6H PRN (Reason: shortness of breath or wheezing) buspirone 5 mg tablet 5 mg PO BID cholecalciferol (vitamin D3) [Vitamin D3] 25 mcg (1,000 unit) tablet 25 mcg PO DAILY fluoxetine 10 mg capsule 10 mg PO DAILY hydroxyzine HCl 10 mg tablet 10 mg PO QID PRN (Reason: anxiety) Rx Instructions: take 1 to 2 tablets mirtazapine 30 mg tablet 30 mg PO .qhs multivitamin [One Daily Multivitamin] Tablet 1 tab PO DAILY tiotropium bromide [Spiriva with HandiHaler] 18 mcg capsule, w/inhalation device 1 cap inhalation DAILY Rx Instructions: puncture 1 cap using device; one dose = 2 inhalations albuterol sulfate 2.5 mg /3 mL (0.083 %) solution for nebulization 2.5 mg inhalation Q6H PRN (Reason: shortness of breath or wheezing) albuterol sulfate [Ventolin HFA] 90 mcg/actuation HFA aerosol inhaler 2 puff INHALATION Q4H PRN (Reason: shortness of breath or wheezing) budesonide-formoterol [Symbicort] 80-4.5 mcg/actuation HFA aerosol inhaler 1 inh INHALATION Q12H Activity: increase activity as tolerated Diet: advance to your usual diet Print Language: Romansh Patient Instructions: Depression (DC), PTSD (Post Traumatic Stress Disorder) (DC), Cognitive Behavioral Therapy (DC) Forms: Portal Instructions Follow Up Appointments: F/u with PCP in one week
[2024-06-19] MEDS: BUDESONIDE 0.5 MG/2 ML AMPULE NEB IH (10:54)
[2024-06-19 10:55] VITALS: PULSE 76; O2SAT 91
[2024-06-19] MEDS: LORAZEPAM 1 MG TABLET PO (13:15)
--- NOTE | 2024-06-20 13:35 | SWNOTE1 ---
Phone number disconnected , 06/20/24
== END 2024-06-19 13:54 | disposition home or self-care (01) | DRG 139 ==
LOC: ER 15:28 → MS 06-19 09:26
PROVIDERS: Admitting Provider Family Medicine; Emergency Provider Emergency Medicine; Visit Provider Internal Medicine
DX: J18.9 Pneumonia, unspecified organism (principal); J44.1 Chronic obstructive pulmonary disease with (acute) exacerbation; J44.0 Chronic obstructive pulmonary disease with (acute) lower respiratory infection; J96.21 Acute and chronic respiratory failure with hypoxia; E43 Unspecified severe protein-calorie malnutrition; Z68.1 Body mass index [BMI] 19.9 or less, adult; F43.10 Post-traumatic stress disorder, unspecified; F41.9 Anxiety disorder, unspecified; Z99.81 Dependence on supplemental oxygen; Z87.891 Personal history of nicotine dependence; Z85.118 Personal history of other malignant neoplasm of bronchus and lung; Z79.899 Other long term (current) drug therapy; Z20.822 Contact with and (suspected) exposure to COVID-19
CPT/HCPCS: 36415; 71045; 80053; 83735; 84484; 85025; 85378; 85610; 87040; 87804; 87811; 90674; 93005; 94640; 94667; 94668; 94761; 96365; 96367; 96375; 99285; J0456; J0696; J1650; J2060; J2405; J2919